=== PATIENT | female | born 1970 | race Hispanic/Latino ===

== ENCOUNTER → 2018-07-12 12:39 | Outpatient (CLI) | payer OTHER, SELFPAY ==
--- NOTE | 2018-07-12 14:05 | PM.TREADMILL ---
Cardiac Stress Test Report Referral & Results Date Patient Seen: 07/12/18 Requesting provider: Marla Harmon Indication: Chest pain and dyspnea Rest ECG: Unremarkable Procedure Note: Today following both written and verbal informed consent, the patient was exercised according to a standard [facility] protocol. The patient exercised for a total of 6 min 47 sec achieving a maximum heart rate of 170. Patient's maximum systolic blood pressure was 180. This was an estimated 7.0 MET's. There are no ST-T segment changes Normal heart rate and blood pressure response Functional aerobic impairment approximately 8% on the sedentary scale No dysrhythmias Impression: No evidence of ischemia. Borderline average exercise capacity Please note: Actual ECG tracings can be found in the PACS system.
== END ==
PROVIDERS: Visit Provider Physician Assistant
DX: R07.9 Chest pain, unspecified (principal); R06.00 Dyspnea, unspecified
CPT/HCPCS: 93016; 93017; 93018

== ENCOUNTER → 2023-01-16 07:36 | Outpatient (CLI) | payer OTHER, SELFPAY ==
--- NOTE | 2023-01-22 09:50 | PM.PFT.1 ---
Pulmonary Function Test Referral & Results Date Patient Seen: 01/16/23 Results: The spirometry demonstrates an FVC of 3.26 L which is 92% of predicted. The FEV1 was measured at 2.63 L which is 94% of predicted. The FEV1/FVC ratio was 81 which is 100% of predicted. Following the administration of bronchodilator there was to 40% improvement in FEF 25-75%. Lung volumes show an SVC of 3.30 L which is 101% of predicted. The diffusing capacity was measured at 27.36 which is 112% of predicted. The maximum voluntary ventilation was reduced Interpretation: This study demonstrates probably normal pulmonary function, although reduction in maximum voluntary ventilation in the absence of any abnormalities of spirometry suggest the presence of neuromuscular disease Clinical correlation suggested
== END ==
PROVIDERS: PCP Physician Assistant Medical; Referring Provider Pediatrics; Visit Provider Pediatrics
DX: R05.3 Chronic cough (principal); F17.210 Nicotine dependence, cigarettes, uncomplicated; J98.8 Other specified respiratory disorders
CPT/HCPCS: 94060; 94726; 94729